=== PATIENT | female | born 1950 | race Asian ===

== ENCOUNTER 2025-09-14 05:54 | Emergency (ER) | payer MEDICARE, BC, OTHER ==
[~2025-09-14] VITALS: Ht 157.5 cm; Wt 77.0 kg
[2025-09-14 06:12] VITALS: BP 97/72; TEMP 37.2
[2025-09-14] MEDS ORDERED: NOREPINEPHRINE 8MG/250ML PMX 250 ML IV ONE (06:14)
[2025-09-14] MEDS ORDERED: SODIUM CHLORIDE 0.9% 1,000 ML IV ONE (06:30)
[2025-09-14] MEDS ORDERED: ACETAMINOPHEN 650MG SUPP PR PRN (06:30)
[2025-09-14] MEDS ORDERED: ACETAMINOPHEN 650MG/20.3ML UDC NG PRN (06:30)
[2025-09-14] MEDS ORDERED: INSULIN REGULAR (HUMULIN R) 1000UNITS/10ML VIAL IV ONE (07:00)
[2025-09-14 07:09] LABS: HEMATOCRIT. 38.0 % (36.0-48.0); HEMOGLOBIN. 10.7 g/dL (12.0-16.0); RED BLOOD CELL COUNT 3.79 mill/uL (4.2-5.4); RED CELL DISTRIBUTION WIDTH 20.9 % (11.6-14.6)
[2025-09-14 07:14] VITALS: PULSE 117; RESP 20; O2SAT 100
[2025-09-14 07:18] LABS: UREA NITROGEN BLOOD 31 mg/dL (9-23)
[2025-09-14 07:19] LABS: ASPARTATE AMINOTRANSFERASE 493 IU/L (<34)
[2025-09-14 07:20] LABS: BILIRUBIN DIRECT 0.2 mg/dL (<=3.0); BILIRUBIN TOTAL 0.3 mg/dL (0.1-1.0); PROTEIN TOTAL 5.4 g/dL (6.0-8.3)
[2025-09-14 07:37] LABS: TROPONIN I HIGH SENSITIVITY 2026 ng/L (3.0-34)
[2025-09-14 07:42] LABS: CREATININE 6.4 mg/dL (0.6-1.0)
[2025-09-14 07:43] LABS: PHOSPHORUS 14.5 mg/dL (2.5-4.9)
[2025-09-14 09:53] LABS: BAND% 26.0 % (1.0-6.0); EOSINOPHILS % MANUAL 1.0 % (0.0-5.0); LYMPHOCYTES % MANUAL 26.0 % (20.0-60.0); METAMYELOCYTES % 14.0 % (0-0); MONOCYTES % MANUAL 1.0 % (2.0-8.0); NEUTROPHILS % MANUAL 32.0 % (45.0-75.0); PLATELET ESTIMATE DECREASED
[2025-09-14 09:54] LABS: PLATELET 53 x1000/uL (130-400)
== END 2025-09-14 06:52 ==
LOC: ER 05:54 → CMPBEDREQ 09:25
DX: I46.9 Cardiac arrest, cause unspecified (principal); I45.10 Unspecified right bundle-branch block; I47.19 Other supraventricular tachycardia; Z99.2 Dependence on renal dialysis; Z79.899 Other long term (current) drug therapy
CPT/HCPCS: 99291; 92950; 80076; 80048; 82962; 83735; 84100; 85025; 84484; 36415; 93005; J3490; J7030; 94070; 94664; 99292; J1815